=== PATIENT | female | born 1990 | race Caucasian/White ===

== ENCOUNTER → 2017-04-26 14:02 | Outpatient (CLI) | payer BC, SELFPAY ==
[2017-04-26 16:26] LABS: Pregnancy, Serum, hCG Quali. NEGATIVE Negative (0-9 Nonpreg)
== END ==
PROVIDERS: Visit Provider Obstetrics & Gynecology
DX: N92.6 Irregular menstruation, unspecified (principal); N91.2 Amenorrhea, unspecified
CPT/HCPCS: 36415; 84703

== ENCOUNTER → 2020-08-14 12:15 | Outpatient (CLI) | payer BC, SELFPAY ==
[2015-05-29 07:55] VITALS: BMI 42.5
[2020-08-14 13:54] LABS: Hematocrit 44.1 % (37-47); Hemoglobin 13.9 g/dL (12.0-15.0); Mean Corp Hgb Conc 31.5 g/dL (32-36); Mean Corpuscular Hgb 26.1 pg (27.0-32.0); Mean Corpuscular Volume 82.9 fL (81-99); Mean Platelet Vol. 9.8 fl (6.2-12.0); Platelet Count 357 K/mm3 (150-450); RBC Distribution Width CV 13.2 % (11.6-14.6); RBC Distribution Width SD 39.5 fl (35.1-43.9); Red Blood Count 5.32 M/mm3 (4.2-5.4); White Blood Count 9.2 K/mm3 (4.4-11.0)
[2020-08-14 14:12] LABS: Hemoglobin A1c 5.4 % (3.8-5.6)
[2020-08-14 14:18] LABS: Anion Gap 3 (5-15); BUN 13 mg/dL (7-18); BUN/Creat Ratio 15.4 RATIO (10-20); Calcium,Total 9.5 mg/dL (8.5-10.1); Chloride 106 mmol/L (98-107); Creatinine, Serum 0.84 mg/dL (0.55-1.02); EST Glomerular Filtration Rate 84 mL/min (>60); Est Glom Filt Rate - Afr Amer 102 mL/min (>60); Follicle Stimulating Hormone 7.3 mIU/mL; Glucose 101 mg/dL (74-106); Luteinizing Hormone 10.8 mIU/mL; Potassium 3.9 mmol/L (3.5-5.1); Prolactin 4.4 ng/mL; Sodium Level 136 mmol/L (136-145); T4 Free Direct 1.05 ng/dL (0.76-1.46); Thyroid Stim Hormone (TSH) 1.11 uIU/mL (0.358-3.74)
[2020-08-19 20:07] LABS: DHEA Sulfate 85.2 ug/dL (84.8-378.0)
[2020-08-20 10:17] LABS: Testosterone Free 2.4 pg/mL (0.0-4.2)
[2020-08-20 20:00] LABS: HPV APTIMA, High Risk Positive (Negative)
== END ==
PROVIDERS: Visit Provider Obstetrics & Gynecology
DX: Z12.4 Encounter for screening for malignant neoplasm of cervix (principal); N93.9 Abnormal uterine and vaginal bleeding, unspecified
CPT/HCPCS: 36415; 80048; 82627; 83001; 83002; 83036; 84146; 84402; 84439; 84443; 85027; 87624; 88175; 82626; G0145

== ENCOUNTER → 2020-09-12 | Outpatient (CLI) | payer BC, SELFPAY ==
--- NOTE | 2020-09-12 | CER_PTH ---
PATIENT: JAM MENDEZ [facility] U#:[id number] AGE/SX: 30/F ROOM: RE09/12/[address]: Dr. Earnest Rodriguez MD : 1990 BED: DIS: 09/12/2020 SPEC #: [id number] RECD: 09/12/20 14:00 STATUS: RENEA RESakina #: [id number] JOE: 09/12/20 00:[address]: Earnest Rodriguez DEPT: SURGICAL PATHOLOGY RECD BY: Jose Ramon Bennett ENTERED: 09/15/20 08:05 SP TYPE: CERV OTHR DR: No Primary Care Phys Tissues: A - Uterine cervix, NOS B - Endocervical Procedures: Surgery Specimen Level IV HEADER OPERATION: Colposcopy PRE-OP DIAGNOSIS: R87.612, R87.810 TISSUE SUBMITTED: A ? Cervical biopsy four quad, B - ECC MICROSCOPIC DIAGNOSIS A. 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 Squamous metaplasia and chronic inflammation. See comment. B. Endocervix, curettings: Strips of benign superficial endocervix. No evidence of dysplasia. AM:faye 09/16/2020 COMMENT A. Results from immunohistochemistry ([id number]) for surrogate HPV marker (p16) will be reported separately. MICROSCOPIC DESCRIPTION Slides are reviewed. GROSS DESCRIPTION A - Received in fixative is one container labeled with the patient's name and designated cervix, four quadrant biopsy. The specimen consists of multiple irregular fragments of light martell soft tissue that in aggregate measure 1 x 1 x 0.3 cm. The specimen is totally submitted in one cassette. B - Received in fixative is one container labeled with the patient's name and designated ECC. The specimen consists of multiple fragments of hemorrhagic mucoid tissue that in aggregate measure 1.5 x 1 x 0.2 cm. The specimen is totally submitted in one cassette. / NEGRITA:faye 09/15/20 TC:3 CPT: 13064 x2
--- NOTE | 2020-09-12 | IMM_PTH ---
PATIENT: JAM MENDEZ LOC: [facility] U#:[id number] AGE/SX: 30/F ROOM: RE09/12/[address]: Dr. Earnest Rodriguez MD : 1990 BED: DIS: 09/12/2020 SPEC #: [id number] RECD: 09/16/20 13:27 STATUS: RENEA REQ #: [id number] JOE: 09/12/20 00:[address]: Earnest Rodriguez DEPT: IMMUNOHISTOCHEMISTRY RECD BY: Maddie Maldonado ENTERED: 09/16/20 13:27 SP TYPE: IMMUNO OTHR DR: No Primary Care Phys Tissues: A - Uterine cervix, NOS Procedures: p16 (initial) KI-67 (add) PHYSICIAN & INSTITUTION [place] [id number] SPECIMEN INFORMATION: Tissue Source: A ? Cervical biopsy Clinical Info: R87.612, R87.810 Specimen Number: [id number] CPT code: 00525, 18538 METHODOLOGY: Deparaffinized sections of prefer/formalin-fixed tissue or PAP/DQ stained slides are incubated with monoclonal/polyclonal antibodies/oligonucleotide probes. Localization is made via biotin free immunoperoxidase method. Appropriate controls are performed and reacted as expected. Results on target cell population are indicated in the following table: RESULTS: ANTIBODY / CLONE RESULT Block A P16 (E6H4) * Ki-67 (30-9) negative These tests were developed and their performance characteristics determined by [facility]. They may not have been cleared or approved by the U.[place]. Food and Drug Administration. The FDA has determined that such clearance or approval is not necessary. The above immunohistochemical/dualISH markers are ordered and reviewed by the Pathologist. INTERPRETATION: A. Cervical biopsy: No evidence of squamous dysplasia. AM:faye 09/17/2020 *?Positivity is seen only in glandular epithelium. Clinical correlation is necessary.
== END | disposition home or self-care (01) ==
LOC: LABSPEC 14:24
PROVIDERS: Visit Provider Obstetrics & Gynecology
DX: R87.612 Low grade squamous intraepithelial lesion on cytologic smear of cervix (LGSIL) (principal); R87.810 Cervical high risk human papillomavirus (HPV) DNA test positive
CPT/HCPCS: 88305; 88341; 88342